=== PATIENT | female | born 1990 | race Two or more races ===

== ENCOUNTER 2018-03-06 21:29 | Emergency (ER) | payer BC ==
--- NOTE | 2018-03-06 22:19 | ED Physician Chart ---
ED Chief Complaint/HPI - Patient Information Date Seen:: 03/06/18 Time Seen:: 22:17 Chief Complaint:: Right ankle pain History of Present Illness:: 27 yo female tripped on a road curb, caused hyperextension of right ankle with subsequent significant pain and swelling of the right lateral malleolus. Patient had difficulty standing on her right foot and ambulating. Allergies:: Allergies Allergy/AdvReac Type Severity Reaction Status Date / Time No Known Allergies Allergy Verified 03/06/18 21:37 Vitals:: Vital Signs - 8 hr 03/06/18 21:37 Temp 97.5 F HR 95 RR 19 BP 142/83 O2 Sat % 99 ED Review of Systems - Review of Systems General/Constitutional: No fever, No chills Skin: No rash Head: No headache Eyes: No pain ENT: No nasal drainage Neck: No neck pain Cardio Vascular: No chest pain Pulmonary: No SOB GI: No nausea, No vomiting Musculoskeletal: Bone or joint pain Psychiatric: No prior psych history Neurological: No focal symptoms ED Past Medical History - Past Medical History Past Medical History: No significant medical hx Social History: Smoker, Alcohol, No Drug Use Surgical History: None Family Medical History - Family Member Mother History Unknown: Yes ED Physical Exam - Physical Examination General/Constitutional: Awake Head: Atraumatic Eyes: PERRL Skin: No skin lesions ENMT: Nasal exam nl Neck: No nuchal rigidity Respiratory: Clear to Auscultation Cardio Vascular: RRR, No murmur, gallop, rubs, NL S1 S2 GI: No tenderness/rebounding/guarding Other Extremities comments:: Right ankle tenderness with painful and limited ROM, swelling on the lateral malleolus. Normal pulse of DP/PT arteries, no sensory deficit of right foot. Neuro/Psych: No focal deficits ED Labs/Radiology/EKG Results - Radiology Results Results: Right ankle X ray: no bone fracture. lateral malleolus soft tissue swelling ED Assessment - Assessment General Assessment: Right ankle sprain Obese Assessment/Comments:: Right ankle X ray Ibuprofen 800mg po x 1 Icing right ankle Wrapped right ankle to provide support and comfort D/c home Rest, icing, elevation of right ankle F/u PCP or return to ER if symptoms worsen ED Septic Shock - . Is Septic Shock (SBP<90, OR Lactate>4 mmol\L) present?: No - <6hrs of presentation: Vital Signs: Vital Signs - 8 hr 03/06/18 21:37 Temp 97.5 F HR 95 RR 19 BP 142/83 O2 Sat % 99 ED Reassessment (Disposition) - Reassessment Reassessment Condition:: Improved - Patient Disposition Discharge/Transfer:: Home
--- NOTE | 2018-03-07 10:37 | Diagnostic Imaging Report ---
Right ankle (3 views) HISTORY: Pain No acute bony abnormalities are seen. No fractures. Joint spaces appear normal. IMPRESSION: No acute focal bony abnormalities In the presence of recent trauma and persistent symptoms, a repeat radiograph in 5-7 days may be helpful for detection of a subtle or occult fracture.
== END 2018-03-06 22:55 | disposition home or self-care (01) ==
LOC: ER 21:29
DX: S93.401A Sprain of unspecified ligament of right ankle, initial encounter (principal); E66.9 Obesity, unspecified; F17.200 Nicotine dependence, unspecified, uncomplicated; W18.40XA Slipping, tripping and stumbling without falling, unspecified, initial encounter; Y93.89 Activity, other specified; Y92.89 Other specified places as the place of occurrence of the external cause; Y99.8 Other external cause status
CPT/HCPCS: 73610-RT-TC; Z7502